=== PATIENT | female | born 1990 | race Caucasian/White ===

== ENCOUNTER 2017-12-04 15:28 | Emergency (ER) | payer BC ==
[2017-12-04 15:40] VITALS: O2SAT 100
[2017-12-04] MEDS ORDERED: Sodium Chloride 0.9% 1000 ML 1,000 ML IV STA (16:07)
[2017-12-04] MEDS ORDERED: Zofran 4 MG/2 ML VIAL IV ONE ×2 (16:07→17:29)
[2017-12-04] MEDS ORDERED: GI COCKTAIL 45 ML (Maalox/Lidocaine) PO ONE (16:07)
[2017-12-04] MEDS ORDERED: Hydromorphone 1 mg/ml Ampule IV ONE (16:07)
[2017-12-04] MEDS ORDERED: Hydromorphone 1 mg/ml Ampule ONE (16:18)
[2017-12-04] MEDS ORDERED: Zofran 4 MG/2 ML VIAL ONE ×2 (16:18→17:35)
[2017-12-04] MEDS ORDERED: XYLOCAINE HCl Viscous ONE (16:18)
[2017-12-04] MEDS ORDERED: MAALOX ES 30 ML UNIT DOSE ONE (16:19)
[2017-12-04] MEDS ORDERED: Sodium Chloride 0.9% 1000 ML 1,000 ML ONE (16:19)
[2017-12-04 16:24] LABS: BASOPHIL % 0.2 % (0.0-0.4); Basophil (Absolute #) 0.01 (0-0.4); Eosinophil % 1.5 % (0.00-5.0); Eosinophil (Absolute #) 0.07 (0-0.5); Granulocytes % 67.5 % (36.0-66.0); Hemoglobin 16.1 gm/dl (12.0-16.0); Lymphocyte (Absolute #) 0.94 (1.0-4.6); Lymphocytes % 19.8 % (24.0-44.0); Mean Cell Volume 90.9 fl (78-100); Mean Corpuscular Hemoglobin 31.8 pg (26-32); Mean Platelet Volume 11.1 fl (6-9.5); Monocyte (Absolute #) 0.52 (0.0-1.3); Platelet Count 170 K/mm3 (150-450); Red Blood Count 5.06 M/mm3 (4.1-5.4); Red Cell Distribution Width 12.6 % (11.5-14.0); White Blood Count 4.7 K/mm3 (4.0-10.5)
--- NOTE | 2017-12-04 16:33 | ERPHSYRPT ---
- History of Present Illness Time Seen by Provider: 12/04/17 15:40 Historian: patient, family Exam Limitations: no limitations Patient Subjective Stated Complaint: mid epigastric pain Triage Nursing Assessment: Pt c/o of mid epigastric pain that began this morning with vomiting, reports 1 episode of diarhea, abdomen tender in mid upper region with palpation, Pulse 113, appears to be uncomfortable Physician History: 27 y/o white female presents with epigastric abd pain described and sharp and stabbing without radiation. pt had a single episode of vomiting and diarrhea but has nausea. feels like a gallbladder attack. pt underwent cholecystectomy 3 years ago. pt has had a couple of similar episodes of same type since her gallbladder removal. does not feel this is related to food intake. Timing/Duration: today (this am.) Quality: sharpness, stabbing Abdominal Pain Onset Location: epigastric Pain Radiation: no radiation Severity of Pain-Max: moderate Severity of Pain-Current: moderate Modifying Factors: Improves With: vomiting (did not change ) Associated Symptoms: diarrhea (x1), nausea, vomiting (x1) Allergies/Adverse Reactions: nickel [Nickel] Allergy (Verified 12/04/17 15:40) Hives Sulfa (Sulfonamide Antibiotics) Allergy (Verified 12/04/17 15:40) Hives Hx Tetanus, Diphtheria Vaccination/Date Given: Yes Hx Influenza Vaccination/Date Given: No Hx Pneumococcal Vaccination/Date Given: No - Review of Systems Constitutional: No Symptoms, No Fever Eyes: No Symptoms, No Discharge Ears, Nose, & Throat: No Symptoms, No Nose Discharge, No Mouth Pain, No Painful Swallowing Respiratory: No Symptoms, No Cough, No Dyspnea, No Stridor, No Wheezing Cardiac: No Symptoms, No Chest Pain, No Palpitations, No Syncope Abdominal/Gastrointestinal: Abdominal Pain (epigastric), Nausea, Vomiting (x1), Diarrhea (x1) Genitourinary Symptoms: No Symptoms, Dysuria, Frequency, Hematuria Musculoskeletal: No Symptoms Skin: No Symptoms Psychological: No Symptoms Endocrine: No Symptoms Hematologic/Lymphatic: No Symptoms Immunological/Allergic: No Symptoms All Other Systems: Reviewed and Negative - Past Medical History Pertinent Past Medical History: Yes Neurological History: No Pertinent History ENT History: No Pertinent History Cardiac History: No Pertinent History Respiratory History: No Pertinent History Endocrine Medical History: No Pertinent History Musculoskeletal History: No Pertinent History GI Medical History: Gallbladder Disease History: No Pertinent History Psycho-Social History: No Pertinent History Female Reproductive Disorders: No Pertinent History - Past Surgical History Past Surgical History: Yes Neuro Surgical History: No Pertinent History Cardiac: No Pertinent History Respiratory: No Pertinent History Gastrointestinal: Cholecystectomy Genitourinary: No Pertinent History Musculoskeletal: No Pertinent History Female Surgical History: Dilation & Curettage, Section Other Surgical History: twins 18mo ago - Social History Smoking Status: Never smoker Exposure to second hand smoke: No Drug Use: none Patient Lives Alone: No - Female History Hx Last Menstrual Period: 11/27/2017 Hx Now: No ( in [place]) - Nursing Vital Signs Nursing Vital Signs: Initial Vital Signs Temperature 97.7 F 12/04/17 15:30 Pulse Rate 113 H 12/04/17 15:30 Blood Pressure 113/67 12/04/17 15:30 O2 Sat by Pulse Oximetry 100 12/04/17 15:30 Pain Scale Pain Intensity 7 - Physical Exam General Appearance: mild distress, alert, anxiety Eye Exam: PERRL/EOMI, eyes nml inspection Ears, Nose, Throat Exam: normal ENT inspection, moist mucous membranes Neck Exam: normal inspection, non-tender, supple, full range of motion Respiratory Exam: normal breath sounds, lungs clear, airway intact, No chest tenderness, No respiratory distress, No accessory muscle use, No rhonchi, No wheezing, No stridor Cardiovascular Exam: regular rate/rhythm, normal heart sounds, normal peripheral pulses Gastrointestinal/Abdomen Exam: soft, normal bowel sounds, tenderness ( epigastrium), No guarding, No rebound Pelvic Exam: not done Rectal Exam: not done Back Exam: normal inspection Extremity Exam: normal inspection Neurologic Exam: alert, oriented x 3, cooperative, nursing clinical director II-XII nml as tested Skin Exam: normal color, warm, dry Lymphatic Exam: No adenopathy SpO2 Interpretation: normal SpO2: 100 Oxygen Delivery: Room Air Ordered Tests: Active Orders 24 hr Category Date Time Status Clean Catch Urine Specimen STAT Care 12/04/17 16:07 Active IV Insertion STAT Care 12/04/17 16:07 Active AMYLASE Stat Lab 12/04/17 15:57 Completed CBC W DIFF Stat Lab 12/04/17 15:57 Completed CMP Stat Lab 12/04/17 15:57 Completed HCG,QUALITATIVE URINE Stat Lab 12/04/17 16:42 Completed LIPASE Stat Lab 12/04/17 15:57 Completed UA W/RFX UR CULTURE Stat Lab 12/04/17 16:42 Results Medication Summary Generic Name Dose Route Start Last Admin Trade Name Ramin PRN Reason Stop Dose Admin Fluconazole 100 mg 12/05/17 17:43 12/04/17 17:57 Diflucan 100 Mg PO 12/05/17 17:44 100 mg ONCE ONE Administration Sodium Chloride 500 mls @ 500 mls/hr 12/04/17 17:43 12/04/17 17:57 Sodium Chloride 0.9% 500 Ml IV 12/04/17 18:42 500 mls/hr .Q1H ONE Administration Discontinued Medications Generic Name Dose Route Start Last Admin Trade Name Kurtisq PRN Reason Stop Dose Admin Al Hydrox/Mg Hydrox/Simethicone Confirm 12/04/17 16:19 Maalox Es 30 Ml Unit Dose Administered 12/04/17 16:20 Dose 30 ml .ROUTE .STK-MED ONE Cephalexin HCl 500 mg 12/04/17 17:42 12/04/17 17:57 Keflex 500 Mg PO 12/04/17 17:43 500 mg STAT ONE Administration Cephalexin HCl Confirm 12/04/17 17:46 Keflex 500 Mg Administered 12/04/17 17:47 Dose 500 mg .ROUTE .STK-MED ONE Fluconazole Confirm 12/04/17 17:50 Diflucan 100 Mg Administered 12/04/17 17:51 Dose 100 mg .ROUTE .STK-MED ONE Hydromorphone HCl 0.5 mg 12/04/17 16:07 12/04/17 16:25 Hydromorphone 1 Mg/Ml Ampule IV 12/04/17 16:08 0.5 mg STAT ONE Administration Hydromorphone HCl Confirm 12/04/17 16:18 Hydromorphone 1 Mg/Ml Ampule Administered 12/04/17 16:19 Dose 1 mg .ROUTE .STK-MED ONE Sodium Chloride 1,000 mls @ 999 mls/hr 12/04/17 16:07 12/04/17 17:39 Sodium Chloride 0.9% 1000 Ml IV 12/04/17 17:07 Infused .Q1H1M STA Infusion Sodium Chloride Confirm 12/04/17 16:19 Sodium Chloride 0.9% 1000 Ml Administered 12/04/17 16:20 Dose 1,000 mls @ ud .ROUTE .STK-MED ONE Sodium Chloride Confirm 12/04/17 17:43 Sodium Chloride 0.9% 500 Ml Administered 12/04/17 17:44 Dose 500 mls @ ud IV .STK-MED ONE Lidocaine HCl Confirm 12/04/17 16:18 Xylocaine Hcl Viscous * Administered 12/04/17 16:19 Dose 15 ml .ROUTE .STK-MED ONE Magnesium Hydroxide 45 ml 12/04/17 16:07 12/04/17 16:26 Gi Cocktail 45 Ml (Maalox/Lidocaine) PO 12/04/17 16:08 45 ml STAT ONE Administration Ondansetron HCl 4 mg 12/04/17 16:07 12/04/17 16:26 Zofran 4 Mg/2 Ml Vial IV 12/04/17 16:08 4 mg STAT ONE Administration Ondansetron HCl Confirm 12/04/17 16:18 Zofran 4 Mg/2 Ml Vial Administered 12/04/17 16:19 Dose 4 mg .ROUTE .STK-MED ONE Ondansetron HCl 4 mg 12/04/17 17:29 12/04/17 17:38 Zofran 4 Mg/2 Ml Vial IV 12/04/17 17:30 4 mg STAT ONE Administration Ondansetron HCl Confirm 12/04/17 17:35 Zofran 4 Mg/2 Ml Vial Administered 12/04/17 17:36 Dose 4 mg .ROUTE .STK-MED ONE Promethazine HCl 12.5 mg 12/04/17 16:36 12/04/17 16:40 Phenergan 25 Mg Inj IV 12/04/17 16:37 12.5 mg STAT ONE Administration Promethazine HCl Confirm 12/04/17 16:36 Phenergan 25 Mg Inj Administered 12/04/17 16:37 Dose 25 mg .ROUTE .STK-MED ONE Lab/Rad Data: Laboratory Result Diagrams 12/04/17 15:57 12/04/17 15:57 Laboratory Results 12/04/17 12/04/17 12/04/17 Range/Units 16:42 16:42 15:57 WBC (4.0-10.5) K/mm3 RBC (4.1-5.4) M/mm3 Hgb (12.0-16.0) gm/dl Hct (35-47) % MCV (78-100) fl MCH (26-32) pg MCHC (32-36) g/dl RDW (11.5-14.0) % Plt Count (150-450) K/mm3 MPV (6-9.5) fl Gran % (36.0-66.0) % Eos # (Auto) (0-0.5) Absolute Lymphs (auto) (1.0-4.6) Absolute Monos (auto) (0.0-1.3) Lymphocytes % (24.0-44.0) % Monocytes % (0.0-12.0) % Eosinophils % (0.00-5.0) % Basophils % (0.0-0.4) % Absolute Granulocytes (1.4-6.9) Basophils # (0-0.4) Sodium 138 (137-145) mmol/L Potassium 3.8 (3.5-5.1) mmol/L Chloride 102 (98-107) mmol/L Carbon Dioxide 23 (22-30) mmol/L Anion Gap 16.5 H (5-15) MEQ/L BUN 9 (7-17) mg/dL Creatinine 0.86 (0.52-1.04) mg/dL Estimated GFR > 60.0 ML/MIN Glucose 108 H (74-106) mg/dL Calcium 9.1 (8.4-10.2) mg/dL Total Bilirubin 0.50 (0.2-1.3) mg/dL AST 33 (14-36) U/L ALT 18 (0-35) U/L Alkaline Phosphatase 73 (38-126) U/L Serum Total Protein 8.9 H (6.3-8.2) g/dL Albumin 5.0 (3.5-5.0) g/dL Amylase 86 (30-110) U/L Lipase 127 (23-300) U/L Urine Color YELLOW (YELLOW) Urine Appearance SLIGHTLY CLOUDY (CLEAR) Urine pH 5.0 (5-6) Ur Specific Mallory 1.020 (1.005-1.025) Urine Protein NEGATIVE (Negative) Urine Ketones NEGATIVE (NEGATIVE) Urine Blood NEGATIVE (0-5) [place]/ul Urine Nitrite NEGATIVE (NEGATIVE) Urine Bilirubin NEGATIVE (NEGATIVE) Urine Urobilinogen 2 (0-1) mg/dL Ur Leukocyte Esterase TRACE (NEGATIVE) Urine WBC (Auto) 0-2 (0-5) /HPF Urine RBC (Auto) 0-2 (0-2) /HPF U Epithel Cells (Auto) RARE (FEW) /HPF Urine Bacteria (Auto) RARE (NEGATIVE) /HPF Urine Mucus (Auto) SLIGHT (NEGATIVE) /HPF Ur Yeast w Hyphae Occasional (NEGATIVE) /HPF Urine Culture Reflexed Pending Urine Glucose NEGATIVE (NEGATIVE) mg/dL Urine HCG, Qual NEGATIVE (Negative) 12/04/17 Range/Units 15:57 WBC 4.7 (4.0-10.5) K/mm3 RBC 5.06 (4.1-5.4) M/mm3 Hgb 16.1 H (12.0-16.0) gm/dl Hct 46.0 (35-47) % MCV 90.9 (78-100) fl MCH 31.8 (26-32) pg MCHC 35.0 (32-36) g/dl RDW 12.6 (11.5-14.0) % Plt Count 170 (150-450) K/mm3 MPV 11.1 H (6-9.5) fl Gran % 67.5 H (36.0-66.0) % Eos # (Auto) 0.07 (0-0.5) Absolute Lymphs (auto) 0.94 L (1.0-4.6) Absolute Monos (auto) 0.52 (0.0-1.3) Lymphocytes % 19.8 L (24.0-44.0) % Monocytes % 11.0 (0.0-12.0) % Eosinophils % 1.5 (0.00-5.0) % Basophils % 0.2 (0.0-0.4) % Absolute Granulocytes 3.20 (1.4-6.9) Basophils # 0.01 (0-0.4) Sodium (137-145) mmol/L Potassium (3.5-5.1) mmol/L Chloride (98-107) mmol/L Carbon Dioxide (22-30) mmol/L Anion Gap (5-15) MEQ/L BUN (7-17) mg/dL Creatinine (0.52-1.04) mg/dL Estimated GFR ML/MIN Glucose (74-106) mg/dL Calcium (8.4-10.2) mg/dL Total Bilirubin (0.2-1.3) mg/dL AST (14-36) U/L ALT (0-35) U/L Alkaline Phosphatase (38-126) U/L Serum Total Protein (6.3-8.2) g/dL Albumin (3.5-5.0) g/dL Amylase (30-110) U/L Lipase (23-300) U/L Urine Color (YELLOW) Urine Appearance (CLEAR) Urine pH (5-6) Ur Specific Mallory (1.005-1.025) Urine Protein (Negative) Urine Ketones (NEGATIVE) Urine Blood (0-5) [place]/ul Urine Nitrite (NEGATIVE) Urine Bilirubin (NEGATIVE) Urine Urobilinogen (0-1) mg/dL Ur Leukocyte Esterase (NEGATIVE) Urine WBC (Auto) (0-5) /HPF Urine RBC (Auto) (0-2) /HPF U Epithel Cells (Auto) (FEW) /HPF Urine Bacteria (Auto) (NEGATIVE) /HPF Urine Mucus (Auto) (NEGATIVE) /HPF Ur Yeast w Hyphae (NEGATIVE) /HPF Urine Culture Reflexed Urine Glucose (NEGATIVE) mg/dL Urine HCG, Qual (Negative) - Progress Progress: improved, pain not gone completely, re-examined Progress Note: 12/04/17 17:37 pt asleep upon me entering the room. as soon as i woke her up to discuss how she was feeling, she groggily stated her nausea and pain was better but returning. 12/04/17 18:07 pt states she is "feeling so much better" Counseled pt/family regarding: lab results, diagnosis, need for follow-up - Departure Time of Disposition: 17:40 Departure Disposition: Home Clinical Impression: Epigastric abdominal pain, UTI (urinary tract infection) Condition: Stable Critical Care Time: No Referrals: ANDERS LIGHT MD [Primary Care Provider] - Additional Instructions: drink plenty of fluids. avoid fatty greasy spicy foods. follow up with primary doctor tomorrow for further management and referral to mechatronics technician if indicated. Prescriptions: Cephalexin Mh 500 mg [Keflex 500 mg] 500 mg PO TID #21 capsule Fluconazole 100 mg [Diflucan 100 MG] 100 mg PO DAILY #2 tablet
[2017-12-04 16:35] LABS: ALKALINE PHOSPHATASE 73 U/L (38-126); AMYLASE 86 U/L (30-110); ANION GAP 16.5 MEQ/L (5-15); BLOOD UREA NITROGEN 9 mg/dL (7-17); CHLORIDE 102 mmol/L (98-107); Calcium 9.1 mg/dL (8.4-10.2); Carbon Dioxide 23 mmol/L (22-30); Creatinine 1 0.86 mg/dL (0.52-1.04); Glucose 108 mg/dL (74-106); LIPASE 127 U/L (23-300); Potassium 3.8 mmol/L (3.5-5.1); SGOT/AST 33 U/L (14-36); SGPT/ALT 18 U/L (0-35); SODIUM 138 mmol/L (137-145); Total Protein 8.9 g/dL (6.3-8.2)
[2017-12-04] MEDS ORDERED: Phenergan 25 MG INJ ONE (16:36)
[2017-12-04] MEDS ORDERED: Phenergan 25 MG INJ IV ONE (16:36)
[2017-12-04 17:07] LABS: Appearance SLIGHTLY CLOUDY (CLEAR); Bilirubin NEGATIVE (NEGATIVE); Blood NEGATIVE Ery/ul (0-5); Glucose NEGATIVE (NEGATIVE); Ketones NEGATIVE (NEGATIVE); Leukocyte Esterase TRACE (NEGATIVE); Nitrite NEGATIVE (NEGATIVE); Protein,Urine Dip NEGATIVE (Negative); Urobilinogen 2 mg/dL (0-1)
[2017-12-04] MEDS ORDERED: KEFLEX 500 MG PO ONE (17:42)
[2017-12-04] MEDS ORDERED: Sodium Chloride 0.9% 500 ML 500 ML IV ONE ×2 (17:43)
[2017-12-04] MEDS ORDERED: KEFLEX 500 MG ONE (17:46)
[2017-12-04] MEDS ORDERED: Diflucan 100 MG ONE (17:50)
[2017-12-04 18:25] VITALS: BP 97/55; PULSE 66
[2017-12-05] MEDS ORDERED: Diflucan 100 MG PO ONE (17:43)
== END 2017-12-04 18:35 | disposition home or self-care (01) ==
LOC: ED 15:28
DX: R10.13 Epigastric pain (principal); N39.0 Urinary tract infection, site not specified; R11.2 Nausea with vomiting, unspecified; R19.7 Diarrhea, unspecified
CPT/HCPCS: 36000; 36415; 80053; 81001; 82150; 83690; 84703; 85025; 96360; 96361; 96374; 96375; 96376; 99284; J1170; J2405; J2550; A9270-GY